=== PATIENT | female | born 1980 | race Caucasian/White ===

== ENCOUNTER → 2017-10-28 | Outpatient (CLI) | payer OTHER ==
[2017-10-28 13:09] LABS: BASO % 1 % (0-3); EOS # 0.3 x10^3/uL (0.0-0.7); EOS % 4 % (0-3); HEMATOCRIT 46.9 % (36.0-47.0); HEMOGLOBIN 15.5 g/dL (12.0-15.5); LYMPH # 1.7 x10^3/uL (1.0-4.8); LYMPH % 23 % (24-48); MEAN CORPUSCULAR HEMOGLOBIN 29 pg (25-35); MEAN CORPUSCULAR HGB CONC 33 g/dL (31-37); MEAN CORPUSCULAR VOLUME 88 fL (79-100); MONO # 0.3 x10^3/uL (0.0-1.1); MONO % 4 % (0-9); NEUT # 5.1 x10^3uL (1.8-7.7); NEUT % 69 % (31-73); PLATELET COUNT 231 x10^3/uL (140-400); RED BLOOD COUNT 5.34 x10^6/uL (3.50-5.40); RED CELL DISTRIBUTION WIDTH 13.8 % (11.5-14.5); WHITE BLOOD COUNT 7.4 x10^3/uL (4.0-11.0)
[2017-10-28 13:19] LABS: ALBUMIN 3.7 g/dL (3.4-5.0); CREATININE 1.3 mg/dL (0.6-1.0); GFR 46.1; TOTAL BILIRUBIN 0.8 mg/dL (0.2-1.0); TOTAL PROTEIN 7.3 g/dL (6.4-8.2)
--- NOTE | 2017-10-28 13:42 | RAD ---
EXAM: Abdomen CT without intravenous contrast. HISTORY: Pain. TECHNIQUE: Computed tomographic images of the abdomen were obtained without contrast. Multiplanar reformatting was performed. *One or more of the following individualized dose reduction techniques were utilized for this examination: 1. Automated exposure control. 2. Adjustment of the mA and/or kV according to patient size. 3. Use of iterative reconstruction technique. COMPARISON: None. FINDINGS: Evaluation of the lower thorax is unremarkable. No hepatic lesion is seen. The gallbladder, pancreas, spleen and adrenal glands are unremarkable. There is no convincing renal stone or obstructive uropathy. There is no appendicitis. There is no bowel obstruction. There is no lymphadenopathy. There is no suspicious osseous lesion. IMPRESSION: No acute abdominal finding. Electronically signed by: Nighat Brown MD (10/28/2017 1:39 PM) [facility]
== END | disposition home or self-care (01) ==
LOC: CT 12:39
PROVIDERS: ATTEND Physician Assistant
DX: R10.84 Generalized abdominal pain (principal)
CPT/HCPCS: 36415; 74150; 80053; 83690; 85025

== ENCOUNTER → 2017-10-30 | Outpatient (CLI) | payer OTHER ==
--- NOTE | 2017-10-30 13:56 | RAD ---
EXAM: Abdomen sonogram complete. HISTORY: Abnormal liver enzymes laboratory values. TECHNIQUE: Sonographic imaging of the abdomen was performed. COMPARISON: CT dated 10/28/2017. FINDINGS: The liver is upper normal in size. No focal hepatic lesion is seen. There are nonmobile bile gallstones. There is a positive sonographic Breman's sign. The gallbladder wall appears slightly thickened in supine position, measuring 3.3 mm. The kidneys are normal in size. There is no solid or cystic renal lesion. There is no hydronephrosis. The pancreas, aorta, inferior vena cava and spleen are unremarkable. The common bile duct is normal in caliber. IMPRESSION: 1. Cholelithiasis. The gallbladder wall is slightly thickened and there is a positive sonographic Berman sign. The possibility of cholecystitis is not excluded. 2. Otherwise, relatively unremarkable abdomen sonogram. Electronically signed by: Nighat Brown MD (10/30/2017 1:53 PM) [id number]
[2017-10-30 14:10] LABS: GAMMA GLUTAMYL TRANSPEPTIDASE 141 U/L (5-55); LACTATE DEHYDROGENASE 201 U/L (81-234)
== END | disposition home or self-care (01) ==
LOC: US 12:16
PROVIDERS: ATTEND Physician Assistant
DX: K80.20 Calculus of gallbladder without cholecystitis without obstruction (principal); E78.4 Other hyperlipidemia
CPT/HCPCS: 36415; 76700; 82977; 83540; 83550; 83615; 85610; 85730; 86705; 86709; 86803; 87340

== ENCOUNTER 2017-11-14 16:40 | Emergency (ER) | payer OTHER ==
[~2017-11-14] VITALS: Ht 162.6 cm; Wt 78.5 kg
[2017-11-14 17:00] VITALS: BP 122/88
--- NOTE | 2017-11-14 18:22 | PHYS DOC ---
Past History Past Medical History: No Pertinent History Past Surgical History: Cholecystectomy, Hysterectomy Alcohol Use: None Drug Use: None Adult General Chief Complaint Chief Complaint: HAND PROBLEM HPI HPI 37-year-old female presenting the emergency department with severe pain in the right hand. She was seen earlier in clinic when she had a splint placed ulnar gutter for a spiral fourth metacarpal shaft fracture. The pain started after injuring it yesterday when she was changing gears on her new jeep. She had the x -ray today. After being placed in the splint the patient's pain began worsening. The pain is sharp severe nonradiating intermittent. Review of systems negative for wrist pain elbow pain or any other injuries. All other review of systems is negative unless otherwise noted in history of present illness. ED course: 37-year-old female presenting with severe pain in the right hand after being diagnosed with a metacarpal spiral fracture and being splinted. On arrival the patient's splint was taken off and was extremely tight. After taking the splint off the patient's pain improved greatly. We monitored her here in the emergency department if her pain continued to improve. On palpation of the patient's hand compartments are soft and not tense. Patient's pain is significantly improving here. We will replace a ulnar gutter here in the emergency department for the patient to follow-up with orthopedic surgery for further treatment and care of her spiral fracture of her 4th metacarpal. The patient has been examined and was not found to have an emergency medical condition. The patient was then discharged home in stable condition to follow up with their primary care physician over the next 2-3 days. They were to return if their symptoms worsened or if they were concerned for any reason. They were also instructed to return to the emergency department if they were unable to get the recommended and appropriate follow-up. [id number] discharge instructions and return precautions were given. Patient's questions were answered to their satisfaction. Patient is comfortable with plan. Review of Systems Review of Systems SEE ABOVE. Physical Exam Physical Exam SEE ABOVE Constitutional: Well developed, well nourished, no acute distress, non-toxic appearance. [] HENT: Normocephalic, atraumatic, bilateral external ears normal, oropharynx moist, no oral exudates, nose normal. [] Eyes: PERRLA, EOMI, conjunctiva normal, no discharge. [] Neck: Normal range of motion, no tenderness, supple, no stridor. [] Cardiovascular:Heart rate regular rhythm, no murmur [] Lungs & Thorax: Bilateral breath sounds clear to auscultation [] Abdomen: Bowel sounds normal, soft, no tenderness, no masses, no pulsatile masses. [] Skin: Warm, dry, no erythema, no rash. [] Back: No tenderness, no CVA tenderness. [] Extremities: left hand exam No tenderness to palpation in the anatomical snuff box. No swelling in the wrist. No ecchymosis. Normal range of motion. 2 second cap refill distally. Patient demonstrates the ability to make an "A OK", cross their fingers, and give a thumbs up. Sensory function of the radial, ulnar, and median nerve are intact.. No tenderness to palpation of the elbow or the shoulder proximally with good range of motion in both joints. Mild tenderness along the fourth metacarpal. Compartments are soft. Neurologic: Alert and oriented X 3, normal motor function, normal sensory function, no focal deficits noted. [] Psychologic: Affect normal, judgement normal, mood normal. [] Current Patient Data Vital Signs Vital Signs Date Time Temp Pulse Resp B/P (MAP) Pulse Ox O2 Delivery O2 Flow Rate FiO2 11/14/17 17:00 66 26 95 Room Air EKG EKG [] Radiology/Procedures Radiology/Procedures [] Course & Med Decision Making Course & Med Decision Making Pertinent Labs and Imaging studies reviewed. (See chart for details) [] Dragon Disclaimer Dragon Disclaimer This electronic medical record was generated, in whole or in part, using a voice recognition dictation system. Departure Departure: Impression: Primary Impression: Cast discomfort Disposition: 01 HOME, SELF-CARE Condition: STABLE Referrals: BASHIR BAZZI MD (PCP) Patient Instructions: Hand Fracture, Metacarpals Additional Instructions: Thank you for allowing us to participate in your care today. Return to the emergency department you have any new or worsening symptoms, or if you are concerned for any reason. Return to emergency department if you have any new or concerning symptoms including but not limited to fever, chills, nausea, vomiting, intractable pain, any new rashes, chest pain, shortness of air , uncontrolled bleeding, difficulty breathing, and/or vision loss. Follow up orthopedic surgery within [address] Acharya Address: [address] [place] [address] Call your Primary Doctor tomorrow and inform them of your visit today. If you do not have a primary care provider we are happy to provide you with a list of our primary care providers contact information. This condition should be evaluated by your primary care physician and any recommended consulting services for continued management within 2-3 days after discharge. If at any time, you are having difficulty getting into your primary care doctor or a specialist, return to the emergency department. AKUA HUSSEIN MD Nov 14, 2017 18:22
== END 2017-11-14 18:41 | disposition home or self-care (01) ==
LOC: ER 16:40
DX: Z47.89 Encounter for other orthopedic aftercare (principal); M79.641 Pain in right hand
CPT/HCPCS: 29125; 99283

== ENCOUNTER → 2017-11-14 | Outpatient (CLI) | payer OTHER ==
--- NOTE | 2017-11-14 09:16 | RAD ---
INDICATION: Right hand pain and swelling. TECHNIQUE: 3 views of the right hand are submitted for review. No comparison is available. FINDINGS: There is an acute traumatic spiral fracture of the shaft of the fourth metacarpal. Additional fracture is not identified. Fracture does not appear to extend intra-articular. There is no dislocation. There is no soft tissue swelling. IMPRESSION: Acute traumatic fourth metacarpal fracture. Electronically signed by: Juancho Kitchen MD (11/14/2017 9:13 AM) [facility]
== END | disposition home or self-care (01) ==
LOC: RAD 08:51
PROVIDERS: ATTEND Internal Medicine
DX: S62.394A Other fracture of fourth metacarpal bone, right hand, initial encounter for closed fracture (principal); E78.4 Other hyperlipidemia; X58.XXXA Exposure to other specified factors, initial encounter; Y93.89 Activity, other specified; Y92.89 Other specified places as the place of occurrence of the external cause; Y99.8 Other external cause status
CPT/HCPCS: 73130